=== PATIENT | female | born 1995 | race Caucasian/White ===

== ENCOUNTER 2018-07-28 20:36 | Emergency (ER) | payer OTHER ==
[~2018-07-28] VITALS: Ht 152.4 cm; Wt 42.3 kg
[2018-07-28 20:58] VITALS: Ht 152.4 cm; Wt 42.3 kg
[2018-07-28 21:48] VITALS: BP 130/86
== END 2018-07-28 21:48 | disposition home or self-care (01) ==
LOC: ED 20:36
DX: S51.011A Laceration without foreign body of right elbow, initial encounter (principal); W25.XXXA Contact with sharp glass, initial encounter; Y93.89 Activity, other specified; Y92.89 Other specified places as the place of occurrence of the external cause; Y99.8 Other external cause status
CPT/HCPCS: 90715